=== PATIENT | female | born 1985 | race Caucasian/White ===

== ENCOUNTER → 2021-08-17 14:43 | Outpatient (BNVA) | payer SELFPAY | PROVIDERS: Visit Provider Nurse Practitioner Family | DX: N91.1 Secondary amenorrhea (principal); R63.5 Abnormal weight gain; R14.0 Abdominal distension (gaseous); N64.4 Mastodynia | CPT/HCPCS: 80053; 84443; 84703 ==

== ENCOUNTER 2021-08-25 10:11 | Outpatient (CLI) | payer SELFPAY ==
--- NOTE | 2021-08-25 11:00 | US_ITS ---
WS: [id number] Complete ABDOMINAL ULTRASOUND HISTORY: secondary amenorrhea, ABD distention, weight gain COMPARISON: None available. Very limited evaluation of the abdominal structures due to body habitus. Liver: 19.6 cm in length. Moderately enlarged and very dense liver. The liver is poorly visualized th roughout its entirety due to marked attenuation. No bile duct dilatation is evident. Portal Vein: Normal hepatopetal flow with monophasic waveform. Gallbladder: Normally distended with no gallstones, wall thickening or pericholecystic fluid. Gallbladder wall thickness: 0.3 cm. Pancreas: Not visualized. CBD: 0.4 cm. Right kidney: 11.3 cm x 4.3 cm x 5.0 cm. No mass, cortical thickening or hydronephrosis. Left kidney: 11.9 cm x 5.6 cm x 5.6 cm. No mass, cortical thickening or hydronephrosis. Spleen: Normal size and echogenicity. Abdominal aorta and IVC are within normal limits. No ascites. US/US abdomen complete* [id number] IMPRESSION: 1. Marked hepatomegaly and hepatic steatosis. 2. Ultrasound evaluation of the abdomen is limited by body habitus. 3. Negative gallbladder. 4. No hydronephrosis.
== END 2021-08-25 10:12 | disposition home or self-care (01) ==
LOC: RAD 10:16
PROVIDERS: PCP Nurse Practitioner Family; Visit Provider Nurse Practitioner Family
DX: N64.4 Mastodynia (principal); N91.1 Secondary amenorrhea; R14.0 Abdominal distension (gaseous); R63.5 Abnormal weight gain; R16.0 Hepatomegaly, not elsewhere classified; K76.0 Fatty (change of) liver, not elsewhere classified
CPT/HCPCS: 76700

== ENCOUNTER → 2021-09-24 13:27 | Outpatient (BNVA) | payer SELFPAY | PROVIDERS: PCP Nurse Practitioner Family; Visit Provider Obstetrics & Gynecology | DX: Z01.419 Encounter for gynecological examination (general) (routine) without abnormal findings (principal); R14.0 Abdominal distension (gaseous); R63.5 Abnormal weight gain | CPT/HCPCS: 83036; 83525; 84443; 84702; 87624 ==

== ENCOUNTER → 2022-08-16 09:12 | Outpatient (BNVA) | payer BC, MEDICAID, SELFPAY | PROVIDERS: PCP Nurse Practitioner Family; Visit Provider Nurse Practitioner Family | DX: M25.50 Pain in unspecified joint (principal); E11.9 Type 2 diabetes mellitus without complications; R53.83 Other fatigue | CPT/HCPCS: 80053; 80061; 82043; 82306; 82607; 83036; 83735; 84443; 84550; 85025; 85651; 86038; 86140; 86200; 86431 ==

== ENCOUNTER → 2022-12-14 10:15 | Outpatient (BNVA) | payer BC, MEDICAID, SELFPAY | PROVIDERS: PCP Nurse Practitioner Family; Referring Provider Nurse Practitioner Family; Visit Provider Internal Medicine Rheumatology | DX: Z79.899 Other long term (current) drug therapy (principal); M19.90 Unspecified osteoarthritis, unspecified site; Z11.59 Encounter for screening for other viral diseases; M45.6 Ankylosing spondylitis lumbar region; M47.894 Other spondylosis, thoracic region | CPT/HCPCS: 72040; 72072; 73130; 83520; 86235; 86431; 86704; 86803; 86812; 87340 ==

== ENCOUNTER → 2023-02-02 16:00 | Outpatient (BNVA) | payer BC, MEDICAID, SELFPAY | PROVIDERS: PCP Nurse Practitioner Family; Visit Provider Obstetrics & Gynecology | DX: E28.2 Polycystic ovarian syndrome (principal) | CPT/HCPCS: 83001; 84146; 84443; 85025 ==

== ENCOUNTER → 2023-02-03 | Outpatient (BNVA) | payer BC, MEDICAID, SELFPAY | PROVIDERS: PCP Nurse Practitioner Family; Visit Provider Obstetrics & Gynecology | DX: E28.2 Polycystic ovarian syndrome (principal) | CPT/HCPCS: 83001 ==

== ENCOUNTER → 2023-02-15 13:22 | Outpatient (BNVA) | payer BC, MEDICAID, SELFPAY | PROVIDERS: PCP Nurse Practitioner Family; Visit Provider Obstetrics & Gynecology | DX: N94.6 Dysmenorrhea, unspecified (principal); E28.2 Polycystic ovarian syndrome | CPT/HCPCS: 76830 ==

== ENCOUNTER → 2023-05-01 11:05 | Outpatient (BNVA) | payer BC, MEDICAID, SELFPAY | PROVIDERS: PCP Nurse Practitioner Family; Referring Provider Obstetrics & Gynecology; Visit Provider Internal Medicine | DX: E03.9 Hypothyroidism, unspecified (principal); R73.03 Prediabetes; E28.2 Polycystic ovarian syndrome; R63.5 Abnormal weight gain | CPT/HCPCS: 36415; 84403; 84439; 84443; 86376; 86800 ==

== ENCOUNTER → 2023-06-30 13:22 | Outpatient (BNVA) | payer BC, MEDICAID, SELFPAY | PROVIDERS: PCP Nurse Practitioner Family; Visit Provider Obstetrics & Gynecology | DX: N91.2 Amenorrhea, unspecified (principal) | CPT/HCPCS: 84702 ==

== ENCOUNTER → 2025-02-03 12:37 | Outpatient (BNVA) | payer OTHER, SELFPAY | PROVIDERS: PCP Nurse Practitioner Family; Visit Provider Nurse Practitioner Family | DX: E11.9 Type 2 diabetes mellitus without complications (principal); R53.83 Other fatigue; M19.09 Primary osteoarthritis, other specified site; N91.2 Amenorrhea, unspecified | CPT/HCPCS: 80053; 80061; 81025; 82306; 82607; 83036; 84443; 85025; 85651; 86140; 86160; 86162; 86200; 86235; 86255; 86376; 86431 ==